=== PATIENT | female | born 1970 | race Caucasian/White ===

== ENCOUNTER 2018-07-08 18:33 | Emergency (ER) | END 2018-07-08 23:35 | disposition home or self-care (01) ==

== ENCOUNTER 2018-08-20 07:14 | Day surgery (SDC) | payer MEDICAID ==
[2018-08-19 16:39] VITALS: Ht 154.9 cm; Wt 56.2 kg
[~2018-08-20] VITALS: Ht 154.9 cm; Wt 56.2 kg
[2018-08-20] VITALS (9 sets, daily range): BP systolic 121–148; BP diastolic 72–91; PULSE 68–88; RESP 15–24
[~2018-08-20 07:14] MED LIST: CEFAZOLIN 2 GM/50 ML (PMX) 50 ML IVPB SCH; SOD CHLORIDE 0.9% 1,000 ML IV SCH
--- NOTE | 2018-08-20 09:43 | PREAC ---
Date/Time of Note Date/Time of Note DATE: 08/20/18 TIME: 09:43 Anesthesia Eval and Record Evaluation Time Pre-Procedure Interview DATE: 08/20/18 TIME: 09:43 Age 47 Sex female NPO: 8 hrs Preoperative diagnosis L breast mass Planned procedure L partial mastectomy Past Medical History Past Medical History: None Surgery & Anesthesia Issues No known issue Meds Anticoagulation: No Beta Jim within 24 hr: No Reason Beta Jim not given: Pt. not on B-Jim Discontinued Scripts Naproxen* (Naprosyn*) 500 Mg Tablet, 500 MG PO BID PRN for PAIN AND/OR INFLAMMATION, #20 TAB Prov:MEY MTZ DO 07/08/18 Ciprofloxacin Hcl* (Ciprofloxacin Hcl*) 500 Mg Tablet, 500 MG PO BID for 3 Days, TAB Prov:MEY MTZ DO 07/08/18 Current Medications Cefazolin Sodium/ Dextrose 50 ml @ 100 mls/hr ONCE IVPB ; Start 08/20/18 at 07:00; Stop 08/20/18 at 12:00 Sodium Chloride 1,000 ml @ 75 mls/hr [id number] IV ; Start 08/20/18 at 07:00 Meds reviewed: Yes Allergies Coded Allergies: No Known Allergies (Verified Allergy, Unknown, 08/20/18) Allergies Reviewed: Yes Labs/Studies Labs Reviewed: Reviewed by anesthesiologist test: Negative Studies: ECG Pre-procedure Exam Last vitals Vital Signs Date Temp Pulse Resp B/P (MAP) Pulse Ox O2 O2 Flow FiO2 Time Delivery Rate 08/20/18 97.8 75 16 148/80 100 Room Air 08:49 (102) Airway: Adequate mouth opening, Adequate thyromental dist Mallampati: Mallampati II Teeth: Normal Lung: Normal Heart: Normal ASA Physical Status ASA physical status: 2 Emergency: None Planned Anesthetic General/MAC: ETT Pre-operative Attestations Prior to commencing anesthesia and surgery, the patient was re-evaluated, there was verification of: *The patient's identity *The results of appropriate recent lab work and preoperative vital signs *The above evaluation not changing prior to induction *Anesthetic plan, risk benefits, alternative and complications discussed with patient/family; questions answered; patient/family understands, accepts and w ishes to proceed. ELOISE BROWN Aug 20, 2018 09:43
[2018-08-20] MEDS ORDERED: FENTAnyl 50 MCG/ML VIAL ONE (09:59)
[2018-08-20] MEDS ORDERED: MEPERIDINE 25 MG INJ IV PRN (10:00)
[2018-08-20] MEDS ORDERED: METOCLOPRAMIDE 10 MG INJ IV PRN (10:00)
[2018-08-20] MEDS ORDERED: HYDROmorphONE 1 MG/5 ML IV SYRINGE IV PRN ×3 (10:00)
[2018-08-20] MEDS ORDERED: ONDANSETRON 4 MG INJ IV PRN (10:00)
[2018-08-20] MEDS ORDERED: DIPHENHYDRAMINE 50 MG INJ IV PRN (10:00)
[2018-08-20] MEDS ORDERED: FENTAnyl 50 MCG/ML VIAL IV PRN ×3 (10:00)
[2018-08-20] MEDS ORDERED: ALBUTEROL 0.083% (NEB) 2.5 MG/3 ML AMP HHN PRN (10:00)
[2018-08-20] MEDS ORDERED: ISOSULFAN BLUE 1% 5 ML INJ SC ONE (10:01)
[2018-08-20] MEDS ORDERED: ROCURONIUM 50 MG INJ ONE (10:14)
[2018-08-20] MEDS ORDERED: SUCCINYLCHOLINE CHLORIDE 100 MG/5 ML SYG IV ONE (10:14)
[2018-08-20] MEDS ORDERED: CEFAZOLIN 1 GM INJ ONE (10:14)
[2018-08-20] MEDS ORDERED: PROPOFOL 20 ML ONE (10:14)
[2018-08-20] MEDS ORDERED: GLYCOPYRROLATE 0.4 MG INJ ONE (10:14)
[2018-08-20] MEDS ORDERED: LIDOCAINE 100 MG SYRINGE ONE (10:14)
[2018-08-20] MEDS ORDERED: NEOSTIGMINE 3 MG/3 ML SYRINGE ONE (10:14)
--- NOTE | 2018-08-20 11:06 | SIPON ---
Date/Time of Note Date/Time of Note DATE: 08/20/18 TIME: 11:04 Operative Report Preoperative Diagnosis Invasive cancer left breast Postoperative Diagnosis Same Operation/Procedure Performed Left partial mastectomy specimen and sentinel lymph node with additional axillary contents Surgeon see signature line assistant professor of surgery Dr Garay Second assist: MALIK SINGER MD Anesthesia: general Estimated blood loss: 10 - 50 ml's Transfusion Required none Specimen Left partial mastectomy specimen and sentinel lymph node with additional axillary contents Grafts/Implants none Complications none ANAID CRAWFORD MD Aug 20, 2018 11:06
[2018-08-20] MEDS ORDERED: HYDROCODONE/APAP (7.5/325) TAB PO PRN (11:30)
--- NOTE | 2018-08-20 12:26 | OPR ---
DATE OF OPERATION: 08/20/2018 PREOPERATIVE DIAGNOSIS: Large invasive cancer, left breast. POSTOPERATIVE DIAGNOSIS: Large invasive cancer, left breast. OPERATION PERFORMED: Left partial mastectomy and axillary dissection utilizing sentinel lymph node t echnique. ANESTHESIA: General. ANESTHESIOLOGIST: Tab Moncada MD SURGEON: Memo Rutherford MD [employer]: Drs. Garay and Sarita. INDICATIONS FOR PROCEDURE: The patient is a 47-year-old female who presented with a large palpable m ass in the lower inner quadrant of her left breast. Subsequent core biopsy confirmed an invasive can cer. She requested breast conservation surgery. She consented for a left partial mastectomy and axi llary dissection utilizing sentinel lymph node technique. DESCRIPTION OF PROCEDURE: The patient was brought to the operating theater, placed under general ane sthesia. The left breast and axillary region were prepped and draped in usual sterile fashion. Appr oximately 3 to 4 mL of 1% Lymphazurin blue dye was then injected peritumorally and the breast was gen tly massaged for approximately 12 minutes. At this point, a 3 to 4 cm incision was made in the left axillary hairline. Subcutaneous tissue was dissected with cautery down through the clavipectoral fas marino. A dye-stained lymphatic was traced to the sentinel lymph node. [place] lymph node was then an alyzed intraoperatively by attending pathologist, Dr. Sandoval and was positive for metastatic diseas e. Therefore, Dr. Rutherford proceeded with level 1 and partial level 2 dissection with blunt dissection along the chest wall and performed en bloc resection of pectoralis major muscles. The long thoracic nerve was identified and kept out of harm's way. More superiorly, the axillary vein and thoracodorsa l neurovascular bundles were identified and kept out of harm's way. Level 1 and level 2 nodes were t hen resected using LigaSure device. Specimen was removed and sent for permanent pathologic analysis. The wound was irrigated. Minimal bleeding was controlled with cautery, and the skin with a #10-Tang mdh Tae-Sadler drain was then brought through the left mid axillary line, cut to size and laid wit hin the axilla. It was secured in place with 2-0 nylon suture in standard fashion. The skin was the n reapproximated with a 4-0 Vicryl suture in subcuticular fashion. Attention was then directed to performing partial mastectomy. A long curvilinear incision was made d irectly over the palpable mass. Subcutaneous tissue was dissected with cautery. Skin edges were cornelia vated with skin hooks and wide circumferential dissection of the tissue associated with the mass took place, taking great care to ensure adequate margin. It appeared that the tumor was penetrating port ions of the pectoralis major muscle. Therefore, Dr. Rutherford made the decision to perform en bloc resec tion of pectoralis major muscles. The muscle fibers were transected with cautery and the entire spec imen was elevated, transected, oriented, and sent for pathologic analysis. Dr. Rutherford inspected the w ound cavity and there was additional suspicious tissue superiorly. Therefore, additional tissue was resected superiorly for approximately 180 degrees. It was removed and sent separately as additional superior margin tissue. The wound was irrigated. Minimal bleeding was controlled with cautery. Due to the large tissue defect a second #10-Tamazight Tae-Sadler drain was brought through the mid axill kitty line, cut to size and laid within the wound. It was secured in place with 2-0 nylon suture in th e standard fashion. The skin incision was then reapproximated with 4-0 Vicryl sutures in deep dermal fashion, followed by final skin approximation with 5-0 PDS sutures in subcuticular fashion and benzo in and Dermabond was applied. The patient tolerated procedure well. Estimated blood loss was 40 mL. There were no complications and the patient was transported in stable condition to the [facility] Dictated By: MEMO PEREIRA/AIELEN Conf#: [id number] DID#: [id number]
--- NOTE | 2018-08-20 14:52 | PAC ---
Date/Time of Note Date/Time of Note DATE: 08/20/18 TIME: 14:52 Post-Anesthesia Notes Post-Anesthesia Note Last documented vital signs Vital Signs Date Temp Pulse Resp B/P (MAP) Pulse Ox O2 O2 Flow FiO2 Time Delivery Rate 08/20/18 97.0 68 18 121/75 98 Room Air 13:34 (90) Activity: WNL Respiratory function: WNL Cardiovascular function: WNL Mental status: Baseline Pain reasonably controlled: Yes Hydration appropriate: Yes Nausea/Vomiting absent: Yes ELOISE BROWN Aug 20, 2018 14:52
== END 2018-08-20 14:16 | disposition home or self-care (01) ==
LOC: SDS 07:14
PROVIDERS: ATTEND Surgery Surgical Oncology
DX: C50.912 Malignant neoplasm of unspecified site of left female breast (principal); D36.0 Benign neoplasm of lymph nodes
CPT/HCPCS: 19301; 38525; J0690; J1170; J2001; J2405; J2710; J3010; Z7610; 88307; 88331; Q9968

== ENCOUNTER 2018-10-05 08:12 | Day surgery (SDC) | payer MEDICAID ==
[~2018-10-05] VITALS: Ht 149.9 cm; Wt 56.6 kg
[2018-10-05] VITALS (10 sets, daily range): BP systolic 116–139; BP diastolic 63–80; PULSE 74–84; RESP 16–23; Ht 149.9 cm; Wt 56.6 kg
[2018-10-05] MEDS ORDERED: CEFAZOLIN 1 GM/50 ML (PMX) 50 ML IVPB ONE (08:30)
[2018-10-05] MEDS ORDERED: POLYMYXIN/BACITRACIN 1L IRRIG IRR ONE (08:30)
[2018-10-05] MEDS ORDERED: SOD CHLORIDE 0.9% 1,000 ML IV SCH (08:30)
[2018-10-05] MEDS ORDERED: IODIXANOL LOCM 50 ML BTL ONE (10:20)
[2018-10-05] MEDS ORDERED: HEPARIN 1000 UNITS/ML 10 ML INJ ONE (10:20)
[2018-10-05] MEDS ORDERED: MIDAZOLAM 1 MG/ML 2 ML INJ ONE (10:20)
[2018-10-05] MEDS ORDERED: FENTAnyl 50 MCG/ML VIAL ONE (10:20)
[2018-10-05] MEDS ORDERED: LIDOCAINE 1%/EPI (1:100,000) (MDV) 20 ML ONE (10:21)
--- NOTE | 2018-10-05 11:40 | RADRPT ---
PROCEDURE: FLUOROSCOPIC AND ULTRASONOGRAPHIC-GUIDED PLACEMENT OF RIGHT CHEST PORT. CLINICAL INDICATION: History of left breast cancer. Venous access for chemotherapy. TECHNIQUE: Informed consent was obtained. The procedure, risks, benefits, complications and alternatives were e xplained to the patient. Risks including bleeding, infection, and pneumothorax were explained. The p atient understood and was willing to proceed. A procedural pause was performed. The patient's name, d ate of , and procedure to be performed were verified. The central line was inserted with all el ements of maximal sterile barrier technique. All of the following were used: head covering, facial ma sk, sterile gown, sterile gloves, a large sterile sheet, hand hygiene, and 2% chlorhexidine for cuta neous antisepsis. The right neck and anterior/superior chest wall were prepped and draped in usual sterile fashion. Limited sonography of the right neck was then performed. Noted is a patent right internal jugular vei n. Following the local injection of 1% lidocaine, the right internal jugular vein was punctured under so nographic guidance with a 20-gauge needle through which a 0.018 inch floppy tip guidewire was advance d into the superior vena cava, then the right atrium with fluoroscopic guidance. The tract was dila josh to 5 [place] and the wire was then replaced with a 0.035 in guidewire. A site just inferior to the clavicle in the superior anterior right chest wall was localized. One per cent lidocaine was used as local anesthesia. A transverse 2.5 cm incision was made utilizing a 15 alicia de scalpel. Utilizing blunt dissection a subcutaneous pocket was created inferior to the incision. Th e cavity was flushed with approximately 40 cc of PB antibiotic solution. The catheter was tunneled underneath the skin from the newly created pocket to the puncture site in t he neck. The central line catheter was pulled through the tract. Serial dilatation was then performed and a 7 [place] peel away sheath was introduced. The catheter was then advanced through the peel-away sheath until the tip was positioned in the right atrium. The peel-away sheath was removed. The cheikh ter was flushed, clamped, and cut to the appropriate length. The 6.6 [place] catheter was then connected to the [employer] power port. The port was then placed into the pocket. Prior to closing the instrument and sponge count was verified and was correct. The s ubcutaneous tissue was closed with 3-0 Vicryl interrupted suture. The skin at the site of the pocket and in the neck was closed with 4-0 Vicryl suture in a running subcuticular technique. The port was f lushed with 1500 units of heparin in 1.5 cc utilizing a Seaman needle. The needle was removed. A dress ing was applied. Specimens: None. Blood loss: 5 ml. Complications: None. Instructor Extension Work: Cecelia Tejeda Anesthesia: Local and moderate sedation. Graft/Implant: Right chest port. COMPARISON: None. FINDINGS: Ultrasound images were recorded and stored in the patient's medical record. Final radiographic images demonstrate the tip of the catheter in the upper right atrium. A total of 0.2 minutes of fluoroscopy time was used. 6 images of the chest were obtained with the image intensi fier. The ultrasound images demonstrate the needle entering the internal jugular vein. IMPRESSION: 1. Successful ultrasonographic and fluoroscopic guided placement of right chest power port. RPTAT: QQ .Ty Manning MD, Date Time Electronically viewed and signed by .Ty Manning MD, on 10/05/2018 11:40 .R/
--- NOTE | 2018-10-05 11:42 | HPN ---
Date/Time of Note Date/Time of Note DATE: 10/05/18 TIME: 11:42 Interval H&P Admission Note Pt. seen H&P reviewed: No system changes FELIPE OATES MD Oct 05, 2018 11:42
[2018-10-05] MEDS ORDERED: HYDROCODONE/APAP (5/325) TAB PO PRN (12:00)
== END 2018-10-05 13:52 | disposition home or self-care (01) ==
LOC: SDS 08:12
PROVIDERS: ATTEND Internal Medicine Hematology & Oncology
DX: C50.912 Malignant neoplasm of unspecified site of left female breast (principal)
CPT/HCPCS: 36561; 84703; J0690; J1644; J2250; J3010; Q9967; Z7610